=== PATIENT | male | born 1955 | race Asian ===

== ENCOUNTER 2021-02-11 00:34 | Emergency (ER) | payer OTHER, MEDICAID ==
[~2021-02-11] VITALS: Ht 162.6 cm; Wt 67.1 kg
[~2021-02-11 00:34] MED LIST: AMLO5TAB92 PO
[2021-02-11 00:48] VITALS: BP_SYST 140
[2021-02-11 02:14] LABS: BASOPHILS % (AUTO) 0.2 % (0.0-2.0); EOSINOPHILS # (AUTO) 0.1 K/uL (0.0-0.4); EOSINOPHILS % (AUTO) 2.2 % (0.0-4.0); HEMATOCRIT 43.8 % (36-54); HEMOGLOBIN 14.8 g/dL (14.0-18.0); LYMPHOCYTES # (AUTO) 1.4 K/uL (1.0-5.5); LYMPHOCYTES % (AUTO) 20.8 % (20.5-51.5); MEAN CORPUSCULAR HEMOGLOBIN 33 pg (27-31); MEAN CORPUSCULAR HGB CONC 34 % (32-36); MEAN CORPUSCULAR VOLUME 97 fL (79.0-98.0); MONOCYTES # (AUTO) 0.5 K/uL (0.0-1.0); MONOCYTES % (AUTO) 7.5 % (1.7-9.3); NEUTROPHILS # (AUTO) 4.8 K/uL (1.8-7.7); NEUTROPHILS % (AUTO) 69.3 % (40.0-70.0); PLATELET COUNT (AUTO) 150 K/uL (130-430); RED BLOOD CELL COUNT(AUTO) 4.52 MIL/uL (4.2-6.2); RED CELL DISTRIBUTION WIDTH 13.2 % (9.0-15.0); WHITE BLOOD COUNT (AUTO) 6.9 K/uL (4.8-10.8)
[2021-02-11 02:23] LABS: CALCIUM 8.7 mg/dL (8.4-11.0); CREATININE 1.4 mg/dL (0.55-1.30); POTASSIUM 4.4 mmol/L (3.5-5.1)
[2021-02-11 02:31] LABS: ALBUMIN 3.4 g/dL (3.4-4.8); TOTAL BILIRUBIN 0.2 mg/dL (0.0-1.0)
[2021-02-11] MEDS ORDERED: DICYCLOMINE HCL 10 MG/5 ML SOLUTION PO ONE (02:45)
[2021-02-11] MEDS ORDERED: LIDOCAINE VISCOUS 2%, 15 ML UDC MM ONE (02:45)
[2021-02-11] MEDS ORDERED: MAG-AL HYDROX/SIMETH 30 ML UDC PO ONE (02:45)
[2021-02-11] MEDS ORDERED: MAG-AL HYDROX/SIMETH 30 ML UDC ONE (03:12)
[2021-02-11 03:38] LABS: BILIRUBIN,URINE NEGATIVE (NEGATIVE); BLOOD, URINE 1+ (NEGATIVE); CLARITY/URINE CLEAR (CLEAR); COLOR,URINE YELLOW (YELLOW); GLUCOSE,URINE NEGATIVE (NEGATIVE); KETONES,URINE NEGATIVE (NEGATIVE); LEUKOCYTE ESTERASE ,URINE TRACE (NEGATIVE); NITRITE, URINE NEGATIVE (NEGATIVE); PH,URINE 5.5 (5.0-8.0); PROTEIN URINE NEGATIVE (NEGATIVE); UROBILINOGEN,URINE 0.2 (0.2-1.0)
[2021-02-11 03:56] LABS: BACTERIA,URINE MODERATE /HPF (None Seen)
[2021-02-11 05:30] VITALS: BP_SYST 140
[2021-02-11] MEDS ORDERED: FAMO-132 PO (05:30)
== END 2021-02-11 05:30 | disposition home or self-care (01) ==
LOC: SED 00:34
DX: R10.13 Epigastric pain (principal); Z79.899 Other long term (current) drug therapy
CPT/HCPCS: 36415; 80053; 81000; 83690; 84484; 85025; 87086; 93005; 99284; J2001

== ENCOUNTER 2021-04-07 09:11 | Emergency (ER) | payer OTHER, MEDICAID ==
[~2021-04-07] VITALS: Ht 162.6 cm; Wt 63.5 kg
[~2021-04-07 09:11] MED LIST changes: +FAMO-132 PO
[2021-04-07 09:16] VITALS: BP_SYST 133
[2021-04-07 09:49] LABS: BASOPHILS # (AUTO) 0.1 K/uL (0.0-0.2); BASOPHILS % (AUTO) 0.4 % (0.0-2.0); EOSINOPHILS # (AUTO) 0.1 K/uL (0.0-0.4); EOSINOPHILS % (AUTO) 0.5 % (0.0-4.0); HEMATOCRIT 46.5 % (36-54); HEMOGLOBIN 15.8 g/dL (14.0-18.0); LYMPHOCYTES # (AUTO) 1.7 K/uL (1.0-5.5); LYMPHOCYTES % (AUTO) 12.1 % (20.5-51.5); MEAN CORPUSCULAR HEMOGLOBIN 33 pg (27-31); MEAN CORPUSCULAR HGB CONC 34 % (32-36); MEAN CORPUSCULAR VOLUME 96 fL (79.0-98.0); MONOCYTES # (AUTO) 0.8 K/uL (0.0-1.0); MONOCYTES % (AUTO) 5.9 % (1.7-9.3); NEUTROPHILS # (AUTO) 11.2 K/uL (1.8-7.7); NEUTROPHILS % (AUTO) 81.1 % (40.0-70.0); PLATELET COUNT (AUTO) 145 K/uL (130-430); RED BLOOD CELL COUNT(AUTO) 4.85 MIL/uL (4.2-6.2); RED CELL DISTRIBUTION WIDTH 13.4 % (9.0-15.0); WHITE BLOOD COUNT (AUTO) 13.9 K/uL (4.8-10.8)
[2021-04-07 10:18] LABS: CALCIUM 8.1 mg/dL (8.4-11.0); CREATININE 1.3 mg/dL (0.55-1.30); POTASSIUM 3.7 mmol/L (3.5-5.1); PROTHROMBIN TIME 10.2 SECS (9.5-12.5)
[2021-04-07 10:19] LABS: BILIRUBIN,URINE NEGATIVE (NEGATIVE); BLOOD, URINE 1+ (NEGATIVE); COLOR,URINE YELLOW (YELLOW); GLUCOSE,URINE 2+ (NEGATIVE); KETONES,URINE TRACE (NEGATIVE); LEUKOCYTE ESTERASE ,URINE 2+ (NEGATIVE); NITRITE, URINE NEGATIVE (NEGATIVE); PROTEIN URINE NEGATIVE (NEGATIVE); UROBILINOGEN,URINE 0.2 (0.2-1.0)
[2021-04-07 10:31] LABS: ALBUMIN 3.7 g/dL (3.4-4.8); C-REACTIVE PROTEIN QUANT 2.5 mg/dL (0-0.5); TOTAL BILIRUBIN 0.7 mg/dL (0.0-1.0)
[2021-04-07 10:34] LABS: CLARITY/URINE SLIGHTLY HAZY (CLEAR)
[2021-04-07] MEDS ORDERED: CEPH250C PO (10:56)
[2021-04-07] MEDS ORDERED: IBUP-1969 PO (10:56)
[2021-04-07] MEDS ORDERED: cefTRIAXone 1 GM in LIDOCAINE 1%, 20 ML MDV 2.1 ML IM ONE (11:00)
[2021-04-07 11:07] VITALS: BP_SYST 127
[2021-04-07 11:34] LABS: BACTERIA,URINE MANY /HPF (None Seen); WBC,URINE 20-50 /HPF (0-3)
== END 2021-04-07 11:07 | disposition home or self-care (01) ==
LOC: SED 09:11
DX: R50.9 Fever, unspecified (principal); M79.18 Myalgia, other site; Z79.899 Other long term (current) drug therapy
CPT/HCPCS: 36415; 71045; 80053; 81000; 83605; 85025; 85610; 85730; 86140; 87086; 96372; 99284; J0696; J2001

== ENCOUNTER 2021-04-10 13:57 | Emergency (ER) | payer OTHER, MEDICAID ==
[~2021-04-10] VITALS: Ht 167.6 cm; Wt 63.5 kg
[~2021-04-10 13:57] MED LIST changes: +CEPH250C PO; +IBUP-1969 PO
[2021-04-10 14:10] VITALS: BP_SYST 124
--- NOTE | 2021-04-10 14:14 | NUR ---
Patient triaged and placed in waiting room. VSS and patient appears in no acute distress at this time. Accompanied by SELF, awaiting available bed, and MD notified of need for MSE.
--- NOTE | 2021-04-10 14:15 | NUR ---
ER in triage examining patient.
--- NOTE | 2021-04-10 14:16 | NUR ---
Pt returned per request of . Pt has no complaints at this time.
[2021-04-10 14:20] VITALS: BP_SYST 124
--- NOTE | 2021-04-10 14:20 | NUR ---
Patient given written and verbal discharge instructions and verbalizes understanding. ER MD discussed with patient the results and treatment provided. Patient in stable condition. ID arm band removed. No Rx given. Patient educated on pain management and to follow up with PMD. Pain Scale 0. Opportunity for questions provided and answered. Medication side effect fact sheet provided.
== END 2021-04-10 14:20 | disposition home or self-care (01) ==
LOC: SED 13:57
DX: R50.9 Fever, unspecified (principal); Z79.899 Other long term (current) drug therapy
CPT/HCPCS: 99281

== ENCOUNTER 2021-04-17 02:44 | Emergency (ER) | payer OTHER, MEDICAID ==
[~2021-04-17] VITALS: Ht 162.6 cm; Wt 63.5 kg
[2021-04-17 02:53] VITALS: BP_SYST 144
[2021-04-17] MEDS ORDERED: NACL 0.9% 1,000 ML IV ONE (03:45)
[2021-04-17 04:23] LABS: EOSINOPHILS # (AUTO) 0.1 K/uL (0.0-0.4); HEMOGLOBIN 15.1 g/dL (14.0-18.0); MONOCYTES # (AUTO) 0.3 K/uL (0.0-1.0)
[2021-04-17 04:26] LABS: BILIRUBIN,URINE NEGATIVE (NEGATIVE); BLOOD, URINE 1+ (NEGATIVE); CLARITY/URINE CLEAR (CLEAR); COLOR,URINE YELLOW (YELLOW); GLUCOSE,URINE NEGATIVE (NEGATIVE); KETONES,URINE NEGATIVE (NEGATIVE); LEUKOCYTE ESTERASE ,URINE NEGATIVE (NEGATIVE); NITRITE, URINE NEGATIVE (NEGATIVE); PROTEIN URINE NEGATIVE (NEGATIVE); UROBILINOGEN,URINE 0.2 (0.2-1.0)
[2021-04-17 04:27] LABS: BASOPHILS % (AUTO) 0.3 % (0.0-2.0); CALCIUM 8.6 mg/dL (8.4-11.0); CREATININE 1.32 mg/dL (0.55-1.30); EOSINOPHILS % (AUTO) 1.2 % (0.0-4.0); HEMATOCRIT 43.9 % (36-54); LYMPHOCYTES # (AUTO) 1.2 K/uL (1.0-5.5); LYMPHOCYTES % (AUTO) 17.1 % (20.5-51.5); MEAN CORPUSCULAR HEMOGLOBIN 33 pg (27-31); MEAN CORPUSCULAR HGB CONC 34 % (32-36); MEAN CORPUSCULAR VOLUME 96 fL (79.0-98.0); MONOCYTES % (AUTO) 4.6 % (1.7-9.3); NEUTROPHILS # (AUTO) 5.2 K/uL (1.8-7.7); NEUTROPHILS % (AUTO) 76.8 % (40.0-70.0); PLATELET COUNT (AUTO) 161 K/uL (130-430); POTASSIUM 4.4 mmol/L (3.5-5.1); RED BLOOD CELL COUNT(AUTO) 4.59 MIL/uL (4.2-6.2); RED CELL DISTRIBUTION WIDTH 13.1 % (9.0-15.0); WHITE BLOOD COUNT (AUTO) 6.8 K/uL (4.8-10.8)
[2021-04-17 04:29] LABS: BACTERIA,URINE FEW /HPF (None Seen); WBC,URINE 0-3 /HPF (0-3)
[2021-04-17 04:30] LABS: PROTHROMBIN TIME 10.4 SECS (9.5-12.5)
[2021-04-17 04:33] LABS: ALBUMIN 3.4 g/dL (3.4-4.8); TOTAL BILIRUBIN 0.3 mg/dL (0.0-1.0)
[2021-04-17] MEDS ORDERED: MAG HYDROX/AL HYDROX/SIMETH 30 ML, DICYCLOMINE HCL 20 MG, LIDOCAINE VISCOUS 2% 15ML (PO... PO ONE ×3 (05:15)
[2021-04-17] MEDS ORDERED: PANTOPRAZOLE SODIUM 40 MG TAB PO ONE (05:45)
[2021-04-17 06:04] VITALS: BP_SYST 133
== END 2021-04-17 06:04 | disposition home or self-care (01) ==
LOC: SED 02:44
DX: K29.70 Gastritis, unspecified, without bleeding (principal); K21.9 Gastro-esophageal reflux disease without esophagitis; Z79.899 Other long term (current) drug therapy
CPT/HCPCS: 36415; 80053; 81000; 82150; 83690; 85025; 85610; 93005; 96360; 99284; J7030

== ENCOUNTER 2022-01-07 02:51 | Emergency (ER) | payer OTHER, MEDICAID ==
[~2022-01-07] VITALS: Ht 167.6 cm; Wt 63.5 kg
[2022-01-07 03:11] VITALS: BP_SYST 142
--- NOTE | 2022-01-07 03:16 | NUR ---
Patient triaged and placed in waiting room. VS checked and patient appears in no acute distress at this time. Awaiting available bed, and MD notified of need for MSE.
[2022-01-07] MEDS ORDERED: NACL 0.9% 1,000 ML IV ONE (03:45)
[2022-01-07] MEDS ORDERED: MORPHINE 4 MG INJ. 4 MG/ML VIAL IVP ONE (03:45)
[2022-01-07] MEDS ORDERED: PROCHLORPERAZINE EDISYLATE 10 MG/2 ML VIAL IVP ONE (03:45)
--- NOTE | 2022-01-07 03:45 | NUR ---
Patient ambulatory to bed 1 for evaluation and treatment
[2022-01-07 04:12] LABS: BASOPHILS # (AUTO) 0.1 K/uL (0.0-0.2); EOSINOPHILS # (AUTO) 0.2 K/uL (0.0-0.4); EOSINOPHILS % (AUTO) 2.4 % (0.0-4.0); HEMATOCRIT 47.7 % (36-54); HEMOGLOBIN 16.1 g/dL (14.0-18.0); LYMPHOCYTES # (AUTO) 2.1 K/uL (1.0-5.5); LYMPHOCYTES % (AUTO) 30.2 % (20.5-51.5); MEAN CORPUSCULAR HEMOGLOBIN 32 pg (27-31); MEAN CORPUSCULAR HGB CONC 34 % (32-36); MEAN CORPUSCULAR VOLUME 95 fL (79.0-98.0); MONOCYTES # (AUTO) 0.4 K/uL (0.0-1.0); MONOCYTES % (AUTO) 5.4 % (1.7-9.3); NEUTROPHILS # (AUTO) 4.3 K/uL (1.8-7.7); PLATELET COUNT (AUTO) 145 K/uL (130-430); RED BLOOD CELL COUNT(AUTO) 5.01 MIL/uL (4.2-6.2); RED CELL DISTRIBUTION WIDTH 13.3 % (9.0-15.0); WHITE BLOOD COUNT (AUTO) 7.1 K/uL (4.8-10.8)
[2022-01-07 04:13] LABS: BILIRUBIN,URINE NEGATIVE (NEGATIVE); BLOOD, URINE 1+ (NEGATIVE); CLARITY/URINE CLEAR (CLEAR); COLOR,URINE YELLOW (YELLOW); GLUCOSE,URINE NEGATIVE (NEGATIVE); KETONES,URINE NEGATIVE (NEGATIVE); LEUKOCYTE ESTERASE ,URINE NEGATIVE (NEGATIVE); NITRITE, URINE NEGATIVE (NEGATIVE); PROTEIN URINE NEGATIVE (NEGATIVE); UROBILINOGEN,URINE 0.2 (0.2-1.0)
[2022-01-07 04:29] LABS: CALCIUM 8.9 mg/dL (8.4-11.0); CREATININE 1.17 mg/dL (0.55-1.30); POTASSIUM 3.5 mmol/L (3.5-5.1)
[2022-01-07 04:35] LABS: ALBUMIN 3.9 g/dL (3.4-4.8); TOTAL BILIRUBIN 0.3 mg/dL (0.0-1.0)
[2022-01-07] MEDS ORDERED: MAG HYDROX/AL HYDROX/SIMETH 30 ML, DICYCLOMINE HCL 20 MG, LIDOCAINE VISCOUS 2% 15ML (PO... PO ONE ×3 (05:30)
[2022-01-07] MEDS ORDERED: PRO40 PO (06:02)
[2022-01-07] MEDS ORDERED: METO-290 PO (06:02)
[2022-01-07] MEDS ORDERED: SUCR1ORA4 PO (06:02)
[2022-01-07] MEDS ORDERED: PROCHLORPERAZINE EDISYLATE 10 MG/2 ML VIAL ONE (06:54)
[2022-01-07] MEDS ORDERED: MORPHINE 4 MG INJ. 4 MG/ML VIAL ONE (06:55)
--- NOTE | 2022-01-07 07:03 | NUR ---
Patient refused morphine and compazine. Medicines returned to [facility]. ER aware
--- NOTE | 2022-01-07 07:30 | NUR ---
Pt in bed resting with no s/s of distress. Pt is A&Ox4. Skin intact. Pt connected to air sampling and monitoring and VSS. Pt ambualtory with steady gait. Pt has no c/o. Bed in lowest position. 20g IV intact.
[2022-01-07 07:58] VITALS: BP_SYST 128
--- NOTE | 2022-01-07 07:59 | NUR ---
Patient given written and verbal discharge instructions and verbalizes understanding. ER MD discussed with patient the results and treatment provided. Patient in stable condition. ID arm band removed. IV catheter removed intact and dressing applied, no active bleeding. Rx of Pantaprazole and Sucralfate given. Patient educated on pain management and to follow up with PMD. Pain Scale . Opportunity for questions provided and answered. Medication side effect fact sheet provided.
== END 2022-01-07 07:58 | disposition home or self-care (01) ==
LOC: SED 02:51
DX: K29.70 Gastritis, unspecified, without bleeding (principal); I10 Essential (primary) hypertension; K21.9 Gastro-esophageal reflux disease without esophagitis
CPT/HCPCS: 36415; 80053; 81003; 83690; 85025; 96360; 99283; J7030; 99284; J0780; J2270

== ENCOUNTER 2022-08-10 03:08 | Emergency (ER) | payer OTHER, MEDICAID ==
[~2022-08-10] VITALS: Ht 170.2 cm; Wt 64.4 kg
[~2022-08-10 03:08] MED LIST changes: +METO-290 PO; +PRO40 PO; +SUCR1ORA4 PO
--- NOTE | 2022-08-10 03:30 | NUR ---
DEEDEE Galeana at bedside examining patient.
[2022-08-10 03:37] VITALS: BP_SYST 126
[2022-08-10] MEDS ORDERED: MAG-AL HYDROX/SIMETH 30 ML UDC PO ONE (04:00)
[2022-08-10] MEDS ORDERED: NACL 0.9% 1,000 ML IV ONE (04:00)
[2022-08-10] MEDS ORDERED: FAMOTIDINE PF 20 MG/2 ML VIAL IVP ONE (04:00)
[2022-08-10 04:27] LABS: BASOPHILS % (AUTO) 0.7 % (0.0-2.0); EOSINOPHILS % (AUTO) 0.2 % (0.0-4.0); HEMATOCRIT 44.7 % (36-54); HEMOGLOBIN 15.4 g/dL (14.0-18.0); LYMPHOCYTES # (AUTO) 0.6 K/uL (1.0-5.5); LYMPHOCYTES % (AUTO) 9.1 % (20.5-51.5); MEAN CORPUSCULAR HEMOGLOBIN 33 pg (27-31); MEAN CORPUSCULAR HGB CONC 34 % (32-36); MEAN CORPUSCULAR VOLUME 96 fL (79.0-98.0); MONOCYTES # (AUTO) 0.2 K/uL (0.0-1.0); MONOCYTES % (AUTO) 2.6 % (1.7-9.3); NEUTROPHILS # (AUTO) 5.9 K/uL (1.8-7.7); NEUTROPHILS % (AUTO) 87.4 % (40.0-70.0); PLATELET COUNT (AUTO) 146 K/uL (130-430); RED BLOOD CELL COUNT(AUTO) 4.66 MIL/uL (4.2-6.2); RED CELL DISTRIBUTION WIDTH 13.2 % (9.0-15.0); WHITE BLOOD COUNT (AUTO) 6.7 K/uL (4.8-10.8)
--- NOTE | 2022-08-10 04:35 | NUR ---
Pt C/o abdominal pain Hx of epigastric pain. Unknown pathology AOX4 VSS Pt medicated per MD Will continue to monitor
[2022-08-10 04:53] LABS: CALCIUM 8.7 mg/dL (8.4-11.0); CREATININE 1.28 mg/dL (0.55-1.30); TOTAL BILIRUBIN 0.7 mg/dL (0.0-1.0)
[2022-08-10 04:54] LABS: ALBUMIN 3.6 g/dL (3.4-4.8)
--- NOTE | 2022-08-10 06:08 | NUR ---
Pt resting comfortably in bed AOX4 VSS Able to make needs known Will continue to mnitor
[2022-08-10 06:10] VITALS: BP_SYST 136
--- NOTE | 2022-08-10 06:14 | NUR ---
Patient given written and verbal discharge instructions and verbalizes understanding. ER MD discussed with patient the results and treatment provided. Patient in stable condition. ID arm band removed. IV catheter removed intact and dressing applied, no active bleeding. Rx of given. Patient educated on pain management and to follow up with PMD. Pain Scale . Opportunity for questions provided and answered. Medication side effect fact sheet provided.
== END 2022-08-10 06:14 | disposition home or self-care (01) ==
LOC: SED 03:08
DX: R10.13 Epigastric pain (principal); K21.9 Gastro-esophageal reflux disease without esophagitis; I10 Essential (primary) hypertension; Z79.899 Other long term (current) drug therapy
CPT/HCPCS: 99283; 96374; 96361; 80053; 83690; 85025; 36415; J3490; J7030